=== PATIENT | female | born 1980 | race Caucasian/White ===

== ENCOUNTER 2017-03-03 16:26 | Emergency (ER) | payer MEDICAID | END 2017-03-03 18:04 | disposition home or self-care (01) | LOC: D.ER 16:26 | DX: S42.001A Fracture of unspecified part of right clavicle, initial encounter for closed fracture (principal); W10.9XXA Fall (on) (from) unspecified stairs and steps, initial encounter; Y93.89 Activity, other specified; Y92.028 Other place in mobile home as the place of occurrence of the external cause; F17.200 Nicotine dependence, unspecified, uncomplicated ==

== ENCOUNTER 2018-11-07 18:08 | Emergency (ER) | payer SELFPAY ==
[~2018-11-07] VITALS: Ht 157.5 cm; Wt 68.2 kg
[2018-11-07 18:20] VITALS: Ht 157.5 cm; Wt 68.2 kg
[2018-11-07] MEDS ORDERED: CLEOCIN HCL300 MG PO (22:31)
[2018-11-07] MEDS ORDERED: KEFLEX500 MG PO (22:31)
[2018-11-07] MEDS ORDERED: TORADOL10 MG PO (22:31)
[2018-11-07 22:48] VITALS: BP 122/76
== END 2018-11-07 22:48 | disposition home or self-care (01) ==
LOC: D.ER 18:08
DX: L03.311 Cellulitis of abdominal wall (principal)

== ENCOUNTER 2018-11-12 14:38 | Emergency (ER) | payer MEDICAID ==
[~2018-11-12] VITALS: Ht 157.5 cm; Wt 68.2 kg
[~2018-11-12 14:38] MED LIST: CLEOCIN HCL300 MG PO; KEFLEX500 MG PO; TORADOL10 MG PO
[2018-11-12 14:40] VITALS: BP 143/90; Ht 157.5 cm; Wt 68.2 kg
== END 2018-11-12 16:00 | disposition home or self-care (01) ==
LOC: D.ER 14:38
DX: S31.109A Unspecified open wound of abdominal wall, unspecified quadrant without penetration into peritoneal cavity, initial encounter (principal); X58.XXXA Exposure to other specified factors, initial encounter; Y93.89 Activity, other specified; Y92.89 Other specified places as the place of occurrence of the external cause